=== PATIENT | female | born 1965 | race Caucasian/White ===

== ENCOUNTER → 2020-02-20 | Outpatient (CLI) | payer MEDICARE, OTHER ==
[~2020-02-20] MED LIST: BENA1TAB5 PO; DICL75TA PO; FESO8TAB PO; GLIM4TAB8 PO; IBUP1CAP2 PO; SITA100T PO
--- NOTE | 2020-02-20 08:20 | RAD ---
EXAM: HIP LEFT 2V WITH PELVIS 02/20/2020 12:00 AM CLINICAL INDICATION:Left hip pain COMPARISON:None TECHNIQUE:AP view the pelvis and AP and frog-leg lateral view of the left hip. FINDINGS:No acute fracture. Alignment is normal. There is mild medial left hip joint space narrowing with large acetabular and femoral head osteophytes and subchondral cysts. Mild medial joint space narrowing of the right hip. The pubic symphysis and sacroiliac joints are unremarkable. There is mild lower lumbar facet arthrosis. IMPRESSION:[id number] osteoarthrosis of the left hip. Electronically signed by: Kathie Cruz MD (02/20/2020 8:17 AM) [id number]
== END | disposition home or self-care (01) ==
LOC: RAD 07:47
PROVIDERS: ATTEND Physician Assistant Medical
DX: M16.12 Unilateral primary osteoarthritis, left hip (principal); M47.816 Spondylosis without myelopathy or radiculopathy, lumbar region; M25.752 Osteophyte, left hip; M25.852 Other specified joint disorders, left hip
CPT/HCPCS: 73502

== ENCOUNTER → 2020-02-26 | Outpatient (CLI) | payer MEDICARE, OTHER ==
--- NOTE | 2020-02-26 16:51 | RAD ---
Exam: CT of abdomen and pelvis without contrast INDICATION: Left lower quadrant abdominal pain TECHNIQUE: Sequential axial images through the abdomen and pelvis obtained without IV contrast. Sagittal and coronal reformatted images were reconstructed from the axial data and reviewed. Comparisons: 09/07/2013 FINDINGS: Heart size is normal. No pericardial effusion. Visualized lung bases are clear. No pleural effusion. Evaluation of the solid organs is limited secondary to noncontrast technique. Diffuse hepatic steatosis. Spleen, pancreas, and adrenals are unremarkable. Gallbladder surgically absent. No perinephric inflammation or hydronephrosis. There is hyperdense fluid along the posterior aspect of the left kidney which extends along the left psoas muscle measuring area of approximately 7.5 x 4.2 cm. No renal or ureteral calculi. Several hypoattenuating lesions are noted within the kidneys bilaterally incompletely characterized on this study. The largest is an exophytic lesion arising off the mid pole of the right kidney measuring approximately 2 cm. Bladder is decompressed not well evaluated. Small amount of air is noted within the bladder. Uterus is likely absent. No abnormal adnexal mass. Few scattered diverticula noted predominantly in the sigmoid colon without evidence of acute diverticulitis. The remainder of the large and small bowel are unremarkable. Appendix is normal. No free intra-abdominal air or fluid. No obstruction. Abdominal aorta has a normal course and caliber. No enlarged abdominal lymph nodes are identified. There is enlargement of the right rectus sheath muscles. Small amount of hyperdense fluid is noted at the left adnexa extending from the anterior abdominal wall. Additionally, there is asymmetric enlargement of the left psoas muscle. No suspicious osseous lesions or acute fractures. IMPRESSION: 1. Small amount of hemorrhage extending from the posterior aspect of the mid left kidney down the left retroperitoneum. Findings are concerning for an underlying lesion which has bled. Repeat renal protocol CT or MRI when hemorrhage has resolved to assess for underlying lesion is recommended. 2. Intramuscular hematoma involving the left rectus musculature of the anterior abdominal wall with some hemorrhage extending into the peritoneal cavity of the left lower quadrant. Additionally asymmetric enlargement of the left psoas muscle which may also represent intramuscular hematoma. Correlate for history of anticoagulation. 3. Diffuse hepatic steatosis. Exposure: One or more of the following in the visualized dose reduction techniques were utilized for this examination: 1. Automated exposure control 2. Adjustment of the MA and/or KV according to patient size 3. Use of iterative of reconstructive technique Electronically signed by: Mena Thomas MD (02/26/2020 4:48 PM) [id number]
== END | disposition home or self-care (01) ==
LOC: CT 16:01
PROVIDERS: ATTEND Physician Assistant Medical
DX: K76.0 Fatty (change of) liver, not elsewhere classified (principal); K57.30 Diverticulosis of large intestine without perforation or abscess without bleeding; N28.89 Other specified disorders of kidney and ureter
CPT/HCPCS: 74176

== ENCOUNTER → 2020-03-12 | Outpatient (CLI) | payer MEDICARE, OTHER ==
[~2020-03-12] MED LIST changes: +IOHEXOL 300 MG/ML 75 ML VIAL. IV ONE
--- NOTE | 2020-03-12 10:47 | RAD ---
Examination: CT ABDOMEN WO CONTRAST History: Reason: HX OF A RENAL HEMORRHAGE SEEN ON PRIOR CT, ABD PAIN, RENAL LESION / Spl. Instructions: / History: Comparison/Correlation: 02/26/2020 CT abdomen and pelvis without contrast, CT abdomen and pelvis with oral contrast 09/07/2013 Findings: Axial images of the abdomen were obtained without contrast. Sagittal and coronal reformatted images were provided. Visualized lung bases are clear. Diffuse fatty infiltration of the liver is present. Cholecystectomy. Spleen is unremarkable. The pancreas is normal. Small diverticulum is present at the descending duodenum medially. Right renal cysts are present with no need for follow-up. No radiopaque renal calculi identified. Left renal cyst anteriorly is present does not need follow-up. Hematoma along the posterior margin of the left renal lower pole again seen but overall volume is slightly decreased. Within the hematoma, there is fat density seen on axial image 64 similar to the prior exam. Hemorrhage superficial to the the posterolateral aspect of the left pararenal fascia is mildly decreased in interval. Longitudinal extent of this process is 7.8 cm on sagittal image 51 and this represents a decrease in size by approximately 1 cm since the prior exam. Upper abdominal bowel is unremarkable. No abdominal aortic and. Appendix is normal. No acute bony process. Left rectus muscle anterior abdominal wall hematoma is partially visualized measuring 12.8 cm transverse by 3 cm anteroposterior. The inferior aspect of this process is not included on this exam. This process currently has Hounsfield units 16.3 is compared to previous exam in which the density was 22 Hounsfield units. Impression: Mildly decreased volume of hematoma along the posterior margin of the left kidney. There is fat density within this hematoma volume which raises question of possible underlying angiomyolipoma which has undergone hemorrhage. Interval follow-up CT of the kidneys with contrast is recommended to assess for underlying mass lesion. Small duodenal diverticulum. Fatty infiltration of the liver. Increased volume of left rectus muscle abdominal wall hematoma. PQRS Compliance Statement: One or more of the following individualized dose reduction techniques were utilized for this examination: 1. Automated exposure control 2. Adjustment of the mA and/or kV according to patient size 3. Use of iterative reconstruction technique Electronically signed by: Richard Epps MD (03/12/2020 10:44 AM) [id number]
== END ==
LOC: CT 09:42
PROVIDERS: ATTEND Physician Assistant Medical
DX: N28.1 Cyst of kidney, acquired (principal); K57.10 Diverticulosis of small intestine without perforation or abscess without bleeding; K76.0 Fatty (change of) liver, not elsewhere classified; Z90.49 Acquired absence of other specified parts of digestive tract
CPT/HCPCS: 74150

== ENCOUNTER → 2020-03-18 | Outpatient (CLI) | payer MEDICARE, OTHER ==
[~2020-03-18] MED LIST changes: +IOHEXOL 240 MG/ML 50ML VIAL. ONE; +IOHEXOL 240 MG/ML 50ML VIAL. PO ONE; +IOHEXOL 300 MG/ML 75 ML VIAL. ONE
[2020-03-18 12:31] LABS: CREATININE 1.6 mg/dL (0.6-1.0); GFR 33.5
--- NOTE | 2020-03-18 13:52 | RAD ---
CT ABD PELV W/ORAL IV CONTRAST Indication: Renal lesion, left lower quadrant pain Technique: Postcontrast CT imaging was performed of the abdomen pelvis, multiplanar reconstruction images submitted. Oral contrast was also given. One or more of the following individualized dose reduction techniques were utilized for this examination: 1. Automated exposure control 2. Adjustment of the mA and/or kV according to patient size 3. Use of iterative reconstruction technique. Comparison: February 26, 2020; March 12, 2020 Findings: There is again posterior left perinephric hematoma again some internal fat density in the area of hemorrhage. Size of hematoma has slightly decreased comparing with the more recent exam, associated mild enhancement at the periphery. Discrete mass is not confidently identified on this region although exophytic small lesion may be difficult to exclude at this point in time. There is hypodense lesion anteriorly of the mid left kidney about 2.3 cm with density measurements of a cyst 11 Hounsfield units. There is also exophytic cyst of the mid right kidney about 2.3 cm, also 1.1 cm exophytic cyst of the more superior right kidney. There is again some extent of hemorrhage along the anterior aspect of left psoas muscle. There is again enlargement and heterogeneity more inferiorly of the left iliopsoas muscle. There is also again asymmetric enlargement and heterogeneity of the left rectus abdominal muscle with central area of relative hypodensity with some surrounding enhancement, overall AP thickness somewhat greater than February 2020 exam now measuring about 2.8 cm AP versus previously about 2.2 cm AP. There is also again pocket of density of the anterior left pelvis although decreased in size compared with the February exam about 4.5 x 2.3 cm versus previously 5.8 x 2.8 cm. There is another focus of heterogeneous density of the lateral left pelvis image 73 series 3 about 2.7 cm in size, somewhat greater on this exam although may be due to redistribution of hemorrhage, internal density measurements about 32 Hounsfield units. There is again sigmoid diverticulosis. Bowel is not dilated. There has been cholecystectomy. No significant focal abnormality is identified of the liver. A couple of tiny hypodense foci of the spleen are too small to accurately characterize. There is no abnormality of the limited visualized lung bases. There is small descending duodenal diverticulum. There is no adrenal nodularity. There is multilevel lumbar facet degenerative change. IMPRESSION: 1. Quantity of posterior left perinephric hemorrhage has slightly decreased, discrete mass in this region not confidently identified although smaller exophytic lesion may be difficult to exclude at this point in time for which continued follow-up to assess for mass such as in 3 months advised. There is again evidence of left rectus sheath hematoma, some central areas of hypodensity which may be of liquid desiccation of hematoma, uncertain sterility. There is also some pockets of hemorrhage of the left pelvis, one which measures larger although may be due to due to redistribution of hematoma. Again sterility is uncertain. There is also again hemorrhage of the left iliopsoas muscle more inferiorly. 2. There are bilateral renal cysts. Electronically signed by: Sheng Evans MD (03/18/2020 1:49 PM) [id number]
== END ==
LOC: CT 10:49
PROVIDERS: ATTEND Physician Assistant Medical
DX: N28.1 Cyst of kidney, acquired (principal); K57.30 Diverticulosis of large intestine without perforation or abscess without bleeding; Z90.49 Acquired absence of other specified parts of digestive tract
CPT/HCPCS: 36415; 74177; 82565; Q9966; Q9967

== ENCOUNTER → 2020-05-29 | Outpatient (CLI) | payer MEDICARE, OTHER ==
[~2020-05-29] MED LIST changes: -IOHEXOL 240 MG/ML 50ML VIAL. ONE; -IOHEXOL 240 MG/ML 50ML VIAL. PO ONE; -IOHEXOL 300 MG/ML 75 ML VIAL. IV ONE; -IOHEXOL 300 MG/ML 75 ML VIAL. ONE
--- NOTE | 2020-05-29 15:54 | RAD ---
Renal sonography Clinical indications: Acute renal failure. FINDINGS: The longitudinal and AP and transverse dimensions of the right kidney are 9.9 cm and 4.6 cm and 4.9 cm respectively. The longitudinal and AP and transverse dimensions of the left kidney are 9.8 cm and 4.1 cm and 5.2 cm respectively. Bilateral renal cysts are seen which is an incidental finding and no further follow-up is needed. No hydronephrosis or renal mass or perinephric fluid collection is seen. Urinary bladder is mildly distended with a volume of 35 cc. After voiding, the bladder is completely empty. IMPRESSION: No hydronephrosis. No perinephric fluid collection is seen. Electronically signed by: Rolando Pino MD (05/29/2020 3:51 PM) [id number]
== END | disposition home or self-care (01) ==
LOC: US 09:35
PROVIDERS: ATTEND Internal Medicine Nephrology
DX: N17.9 Acute kidney failure, unspecified (principal); N28.1 Cyst of kidney, acquired; N32.89 Other specified disorders of bladder
CPT/HCPCS: 76770

== ENCOUNTER → 2020-07-14 | Outpatient (CLI) | payer MEDICARE, OTHER ==
[~2020-07-14] MED LIST changes: +IOHEXOL 240 MG/ML 50ML VIAL. ONE; +IOHEXOL 300 MG/ML 75 ML VIAL. IV ONE
--- NOTE | 2020-07-14 17:23 | RAD ---
EXAM: CT Abdomen and Pelvis with IV contrast INDICATION: Reason: INJURY OF KIDNEY 3 MONTH F/U / Spl. Instructions: REDUCED DOSE - CREAT 1.6/ PT DIABETIC / History: TECHNIQUE: Multi-detector row CT images were acquired from the lung bases through the abdomen and pelvis with the use of IV contrast. Sagittal and coronal images were acquired from the transaxial data. All CT scans performed at this facility utilize dose optimization techniques as appropriate to the exam, including the following: Automated exposure control and adjustment of the mA and/or KV according to patient size (this includes techniques or standardized protocols for targeted exams where dose is indication/reason for exam). IV CONTRAST: Administered ORAL CONTRAST: Not administered COMPARISON: 03/18/2020 and 02/26/[address] with IV contrast FINDINGS: LOWER CHEST: Unremarkable LIVER: Mild diffuse hepatic hypoattenuation compatible fatty infiltration. BILIARY SYSTEM: Gallbladder is surgically absent. Bile ducts are not dilated. PANCREAS: Unremarkable SPLEEN: Unremarkable ADRENALS: Unremarkable KIDNEYS & URETERS: Interval decrease in left perinephric soft tissue stranding localized to the dorsal aspect of the mid to lower pole left kidney, compatible with resolving hemorrhage. Bilateral renal cortical cyst that require no additional imaging follow-up are again identified.. BLADDER: Incompletely distention. Mild diffuse wall thickening is nonspecific. REPRODUCTIVE ORGANS: Hysterectomy. Ovaries not seen and may be surgically absent as well. GASTROINTESTINAL: The stomach, small bowel, and colon are unremarkable. The appendix is normal. MESENTERY/PERITONEUM/RETROPERITONEUM: Unremarkable VASCULAR: Unremarkable LYMPH NODES: No adenopathy OSSEOUS & SOFT TISSUES: Fluid collection in the left rectus sheath has since resolved. IMPRESSION: The hemorrhage in the left kidney appears to be gradually resolving although an etiology for this event is not yet radiographically obvious. Given the gradual resolution of these findings however, a benign etiology is favored. Consider 6 month follow-up renal mass protocol abdominal MRI or CT surveillance. Electronically signed by: Haven Kearney MD (07/14/2020 5:20 PM) [id number]
== END ==
LOC: CT 08:00
PROVIDERS: ATTEND Urology
DX: S37.009A Unspecified injury of unspecified kidney, initial encounter (principal); K76.0 Fatty (change of) liver, not elsewhere classified; X58.XXXA Exposure to other specified factors, initial encounter; Y93.89 Activity, other specified; Y92.89 Other specified places as the place of occurrence of the external cause; Y99.8 Other external cause status; Z90.710 Acquired absence of both cervix and uterus; Z90.721 Acquired absence of ovaries, unilateral
CPT/HCPCS: 74177; Q9967

== ENCOUNTER → 2021-02-13 | Outpatient (CLI) | payer MEDICARE, OTHER ==
[2021-02-13 10:32] LABS: CREATININE 1.8 mg/dL (0.6-1.0); GFR 29.1
--- NOTE | 2021-02-13 11:48 | RAD ---
Study: CT abdomen/pelvis without intravenous contrast Indication: Kidney trauma. Comparison: 07/14/2020 Technique: Helical CT imaging performed of the abdomen and pelvis without the use of intravenous cont rast. Sagittal and coronal reformats were obtained. One or more of the following individualized dose reduction techniques were utilized for this examinat ion: 1. Automated exposure control 2. Adjustment of the mA and/or kV according to patient size 3. Use of iterative reconstruction technique. Findings: Inherently limited evaluation without intravenous contrast. Chest: Small hiatal hernia. No newly seen abnormality involving the lower lungs. Liver: No focal hepatic parenchymal abnormality. Gallbladder/Biliary Tree: Surgically absent gallbladder. Unchanged biliary tree. Pancreas: Unremarkable. Spleen: Within normal limits for size. Adrenal Glands: No adrenal gland mass. Kidneys/Ureters/Bladder: Bilateral renal cysts have not changed in size. There is again some strandin g of the perinephric fat at the site of left renal hemorrhage seen on the comparison. No enlarging le colette is apparent at this location. Note is made that direct comparison between this exam and the most recent prior is limited due to the absence of contrast. No stone or collecting system dilatation. Un changed urinary bladder. Reproductive Organs: Absent uterus. No adnexal mass. Colon: Density along the posterior wall of the distal rectum is similar to the prior. The colonic muc stephon is not fully evaluated without oral contrast. No newly seen wall thickening. A few diverticuli wi thout diverticulitis. Appendix: Normal. Small Bowel: Nonobstructed. Stomach: Not well evaluated due to underdistention. Vasculature: Nonaneurysmal aorta. Mild calcific atherosclerosis. Lymph Nodes: Within normal limits. Peritoneum and Body Wall: No free fluid or pneumoperitoneum. Bones: No acute or aggressive osseous process. Facet degeneration greatest at the lower lumbar spine. Left more so than right hip arthrosis. Miscellaneous: None. Impression: 1. No evidence for increasing hemorrhage or an enlarging mass at the site of left renal hemorrhage s een previously, noting the absence of contrast. Bilateral renal cysts measure no different in size. 2. No newly seen abnormality throughout the abdomen or pelvis with chronic observations as outlined in the body the report. Electronically signed by: SULLY ALFORD MD (02/13/2021 11:46 AM) [facility]
== END ==
LOC: CT 09:36
PROVIDERS: ATTEND Urology
DX: S37.009A Unspecified injury of unspecified kidney, initial encounter (principal); N28.1 Cyst of kidney, acquired; Z90.49 Acquired absence of other specified parts of digestive tract; X58.XXXA Exposure to other specified factors, initial encounter; Y93.89 Activity, other specified; Y92.89 Other specified places as the place of occurrence of the external cause; Y99.8 Other external cause status
CPT/HCPCS: 36415; 74176; 82565; 84520

== ENCOUNTER → 2022-01-04 | Outpatient (CLI) | payer BC, MEDICARE, OTHER ==
[~2022-01-04] MED LIST changes: +BENA1TAB48 PO; -BENA1TAB5 PO; -IOHEXOL 240 MG/ML 50ML VIAL. ONE; -IOHEXOL 300 MG/ML 75 ML VIAL. IV ONE
--- NOTE | 2022-01-04 10:23 | RAD ---
Renal ultrasound complete History: Reason: CYST OF KIDNEY, ACQUIRED / Spl. Instructions: / History: Sonographic examination of the kidneys was performed and multiple static images were obtained. Right kidney: The right kidney is seen with no hydronephrosis and measures 11.1 cm in length. Left kidney: The left kidney is seen with no hydronephrosis and measures 10.2 cm in length. There are bilateral renal cysts 2 on the right and 1 on the left. Urinary bladder: The urinary bladder is partially collapsed but appears normal. Impression: No hydronephrosis. Electronically signed by: Alonso Perez III, MD (01/04/2022 10:20 AM) [facility]
== END ==
LOC: US 08:48
PROVIDERS: ATTEND Urology
DX: N28.1 Cyst of kidney, acquired (principal)
CPT/HCPCS: 76770